=== PATIENT | male | born 1975 | race African-American/Black ===

== ENCOUNTER 2023-12-19 19:40 | Emergency (ER) | payer SELFPAY ==
[2023-12-19 19:54] VITALS: BP 105/98; PULSE 107; RESP 20; TEMP 36.7; O2SAT 98
--- NOTE | 2023-12-19 19:57 | ECG_ITS ---
Test Date: 2023-12-19 20:01:14 Measurements Intervals [place] Rate: 105 P: 14 MN: 168 QRS: 41 QRSD: 76 T: 49 QT: 326 QTc: 431 Interpretive Statements SINUS TACHYCARDIA BORDERLINE ECG No previous ECG available for comparison Electronically Signed On 12-19-2023 20:11:39 CDT by Ervin Peñaloza D.O.
[2023-12-20 00:15] VITALS: BP 133/92; PULSE 95; RESP 16; O2SAT 100
== END 2023-12-20 00:20 | disposition left against medical advice (07) ==
PROVIDERS: Emergency Provider Emergency Medicine; PCP Physician Assistant
DX: R11.0 Nausea (principal)
CPT/HCPCS: 93005; 99199